=== PATIENT | female | born 1940 | race Two or more races ===

== ENCOUNTER 2019-12-16 06:58 | Emergency (ER) | payer MEDICAID ==
[~2019-12-16] VITALS: Ht 157.5 cm; Wt 62.0 kg
[~2019-12-16 06:58] MED LIST: OXYB5TAB16 PO
[2019-12-16 08:27] LABS: BASOPHILS % 0.8 % (0.0-2.0); EOSINOPHILS % 0.8 % (0.0-5.0); HEMATOCRIT. 39.3 % (36.0-48.0); HEMOGLOBIN. 13.2 g/dL (12.0-16.0); LYMPHOCYTES % 18.5 % (20.0-50.0); MEAN CORPUSCULAR HEMOGLOBIN 31.4 pg (28.0-32.0); MEAN CORPUSCULAR VOLUME 93.2 fL (81.0-99.0); MEAN PLATELET VOLUME 7.4 fl (7.4-10.4); MONOCYTES % 7.4 % (2.0-8.0); NEUTROPHILS % 72.5 % (40.0-76.0); PLATELET 287 x1000/uL (130-400); RED BLOOD CELL COUNT 4.22 mill/uL (4.2-5.4); RED CELL DISTRIBUTION WIDTH 13.7 % (11.6-14.6)
[2019-12-16 08:36] LABS: CHLORIDE 105 mEq/L (98-107); PROTHROMBIN TIME 10.6 sec (9.6-11.0)
[2019-12-16] MEDS ORDERED: LIDOCAINE 1%/EPI 1:100,000 10 ML VIAL IJ ONE (09:45)
[2019-12-16 10:00] VITALS: BP 148/77
== END 2019-12-16 11:40 | disposition home or self-care (01) ==
LOC: ER 07:32
DX: S01.01XA Laceration without foreign body of scalp, initial encounter (principal); E86.0 Dehydration; N39.0 Urinary tract infection, site not specified; W01.198A Fall on same level from slipping, tripping and stumbling with subsequent striking against other object, initial encounter; Y93.01 Activity, walking, marching and hiking; Y92.012 Bathroom of single-family (private) house as the place of occurrence of the external cause
CPT/HCPCS: 12001; 36415; 70450; 80053; 85025; 85610; 99285; J3490